=== PATIENT | female | born 1990 | race Caucasian/White ===

== ENCOUNTER 2020-06-01 11:18 | Emergency (ER) | payer MEDICAID, SELFPAY ==
[2020-06-01 11:31] VITALS: BP 124/77; PULSE 104; RESP 20; TEMP 37.1; O2SAT 100
--- NOTE | 2020-06-01 11:35 | ED.GENADULT ---
HPI - General Adult General Chief complaint: Ear Stated complaint: hardened wax in right ear Time Seen by Provider: 06/01/20 11:23 Mode of arrival: ambulatory Limitations: no limitations History of Present Illness HPI narrative: Patient presents for evaluation of right-sided ear discomfort for the last 2 days. She thought that her symptoms were related to a cerumen impaction. She has been using Debrox and hydrogen peroxide. She also tried to extract wax from both ears using a Mark pin. She has no difficulty hearing and also denies tinnitus. No fever, chills, cough or shortness of breath. She does have some mild nasal congestion and clear drainage. She reports a history of asthma. She has been using cetirizine, Singulair, Sudafed with minimal improvement in her symptoms thereafter. Related Data Home Medications Medication Instructions Recorded Confirmed albuterol sulfate 1 inh INHALATION Q6-8H 06/01/20 06/01/20 montelukast 10 mg DAILY 06/01/20 06/01/20 Allergies Allergy/AdvReac Type Severity Reaction Status Date / Time No Known Allergies Allergy Verified 06/01/20 11:22 Review of Systems Review of Systems: Narrative: CONSTITUTIONAL: Denies fever, chills, or sweats. EYES: Denies visual changes, redness, or discharge. ENT: Reports rhinorrhea and congestion. Reports sore throat yesterday, now resolved. Reports right sided otalgia. CARDIOVASCULAR: Denies chest pain, palpitations, or edema. RESPIRATORY: Denies cough or dyspnea. GASTROINTESTINAL: Denies abdominal pain, nausea, vomiting, or diarrhea. GENITOURINARY: Denies dysuria or hematuria. SKIN: Denies rash or itching. MUSCULOSKELETAL: Denies back pain, joint pain, or myalgia. NEUROLOGIC: Denies headache, numbness, dizziness, or weakness. PSYCHIATRIC: Denies anxiety or depression. [facility] Past Medical History Medical History (Updated 06/01/20 @ 11:41 by JESSICA Tomas, ) Asthma Surgical History Surgical History (Updated 06/01/20 @ 11:38 by JESSICA Tomas, MICKI) H/O right knee surgery Family History Family History Father Family history of lung cancer Hypertension Mother Hypertension Social History Social History (Reviewed 06/01/20 @ 11:38 by Terrance Lu, [facility], ) Smoking status: Never smoker Alcohol intake: current Substance use: never Gender identity (if verbalized by the patient): Female Exam Narrative: Exam Narrative: GENERAL: Well-appearing, well-nourished, and in no acute distress. HEAD: Normocephalic, atraumatic. EYES: PERRLA and EOMI. ENT: Nares clear, no rhinorrhea or epistaxis. Mucous membranes moist. Oropharynx without tonsillar hypertrophy exudate or other lesions. Left tympanic membrane with mild erythema but no middle ear fluid. No cerumen present in either ear. Right tympanic membrane is retracted with middle ear fluid present and erythema. NECK: Supple. No adenopathy or masses. No carotid bruits or JVD CHEST: Clear to auscultation. No respiratory distress. No wheezes rales or rhonchi HEART: Regular rate and rhythm. No murmur heard. Normal peripheral pulses. ABDOMEN: Soft, nontender, nondistended, normal active bowel sounds. EXTREMITIES: Normal range of motion. No edema. SKIN: Warm, dry, no rash. NEURO: No focal deficits. Alert and oriented x3. PSYCH: Normal mood and affect. Course Vital Signs Vital signs: Vital Signs Temperature 37.1 C 06/01/20 11:31 Pulse Rate 104 H 06/01/20 11:31 Respiratory Rate 06/01/20 11:31 Blood Pressure 124/77 06/01/20 11:31 Pulse Oximetry 100 06/01/20 11:31 Temperature 37.1 C 06/01/20 11:31 Pulse Rate 104 H 06/01/20 11:31 Respiratory Rate 06/01/20 11:31 Blood Pressure 124/77 06/01/20 11:31 Pulse Oximetry 100 06/01/20 11:31 Medical Decision Making MDM Narrative Medical decision making narrative: Patient presents with 2-day history of right-sided otalgia
== END 2020-06-01 11:47 | disposition home or self-care (01) ==
PROVIDERS: Emergency Provider Nurse Practitioner; PCP Registered Nurse
DX: H66.90 Otitis media, unspecified, unspecified ear (principal); J45.909 Unspecified asthma, uncomplicated
CPT/HCPCS: 99213; A9270; G0463

== ENCOUNTER 2020-07-16 15:17 | Emergency (ER) | payer OTHER, SELFPAY ==
[2020-07-16 15:28] VITALS: BP 120/84; PULSE 92; RESP 20; TEMP 37.1; O2SAT 99
--- NOTE | 2020-07-16 15:30 | ED.GENADULT ---
HPI - General Adult General Chief complaint: Ear Stated complaint: ear pain Time Seen by Provider: 07/16/20 15:30 Source: patient and RN notes reviewed Mode of arrival: ambulatory Limitations: no limitations History of Present Illness HPI narrative: 30-year-old female complains of RT otalgia, pressure, and clogged feeling for the past 3 days. Zyrtec, Singulair, and Sudafed without relief. Was treated for otitis media in May 2020 with Augmentin patient says she completed treatment. Denies itching or drainage. Recently had URI symptoms. No facial swelling. No rhinorrhea and nasal congestion. No high fevers, sore throat, drooling, neck or throat swelling. No chest pain or shortness of breath. Remains active. Denies being , LMP 06/21/20. The patient reports she have not been diagnosed with COVID-19. The patient reports she is not waiting for the results of a COVID-19 lab test. The patient reports she do not have fever, chills, weakness, or fatigue. The patient reports she do not have a new or worsening cough or shortness of breath. Denies chest pain. The patient reports she do not have any loss of taste, nausea, vomiting, abdominal pain, and diarrhea. Tolerating po intake well. Denies recent traveling. Denies concerns for COVID-19 or exposures been home with limited outdoor exposure except for essential household needs, work, and return home. At this time, patient is not suspected of having COVID-19. Some parts of this dictation were generated by voice recognition software and may contain typographical and/or grammatical inaccuracies. Related Data Home Medications Medication Instructions Recorded Confirmed montelukast 10 mg DAILY 06/01/20 07/16/20 Allergies Allergy/AdvReac Type Severity Reaction Status Date / Time No Known Allergies Allergy Verified 06/01/20 11:22 Review of Systems Review of Systems: Narrative: CONSTITUTIONAL: Denies fever, chills, sweats. EYES: Denies visual changes, redness, discharge. ENT: Complains of RT otalgia, pressure, clogged. Denies sore throat, rhinorrhea, nasal congestion. CARDIOVASCULAR: Denies chest pain, palpitations, edema. RESPIRATORY: Denies dyspnea, wheezing, cough. GASTROINTESTINAL: Denies abdominal pain, nausea, vomiting, diarrhea. GENITOURINARY: Denies dysuria, hematuria, abnormal discharge. SKIN: Denies rash or itching. MUSCULOSKELETAL: Denies acute back pain, joint pain, or myalgia. NEUROLOGIC: Denies numbness or focal weakness. PSYCHIATRIC: Denies anxiety or depression. All systems reviewed & are unremarkable except as noted in HPI and below. 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 There is relevant patient's past medical history pertinent to the presenting complaint, no relevant family history pertinent to the presenting complaint. Exam Narrative: Exam Narrative: GENERAL: This is a well-nourished, well-developed patient, in no apparent distress. Talks in full sentences and ambulates with steady gait without dyspnea. HEAD: normocephalic, atraumatic. EYES: PERRL. Sclera c
== END 2020-07-16 15:50 | disposition home or self-care (01) ==
PROVIDERS: Emergency Provider Nurse Practitioner Family
DX: H65.191 Other acute nonsuppurative otitis media, right ear (principal); J45.909 Unspecified asthma, uncomplicated
CPT/HCPCS: 99213; G0463

== ENCOUNTER 2020-12-28 11:01 | Emergency (ER) | payer OTHER, SELFPAY ==
[2020-12-28 11:15] VITALS: BP 123/88; PULSE 88; RESP 16; TEMP 36.7; O2SAT 98
--- NOTE | 2020-12-28 11:29 | ED.EAR ---
HPI - Ear Problem General Chief complaint: Ear Stated complaint: Dizzy,Ear and Neck Pain,Cannot focus Time Seen by Provider: 12/28/20 11:30 Source: patient and RN notes reviewed Mode of arrival: ambulatory Limitations: no limitations History of Present Illness HPI Narrative: 30-year-old female presents with concern for 4-day history of right ear pain that radiates down the right neck. Reports general malaise, fatigue, occasional dizziness. Reports she has been taking Sudafed, Nasacort since yesterday with no relief. Reports when she feels dizzy she takes meclizine with no relief. She denies decreased hearing, drainage from the ear. Reports she saw her ENT on and was told her ears looked normal. MD Complaint: ear pain Related Data Home Medications Medication Instructions Recorded Confirmed montelukast 10 mg DAILY 06/01/20 12/28/20 cetirizine [Zyrtec] 10 mg PO DAILY 12/28/20 12/28/20 Allergies Allergy/AdvReac Type Severity Reaction Status Date / Time No Known Allergies Allergy Verified 06/01/20 11:22 Review of Systems Review of Systems: Narrative: CONSTITUTIONAL: Reports fatigue and malaise. Denies chills, sweats, or fever. EYES: Denies visual changes, redness, or discharge. ENT: Denies rhinorrhea, congestion, sinus pain, and sore throat. Reports right ear pain CARDIOVASCULAR: Denies chest pain, palpitations, or edema. RESPIRATORY: Denies cough or dyspnea. GASTROINTESTINAL: Denies abdominal pain, nausea, vomiting, diarrhea SKIN: Denies rash or itching. MUSCULOSKELETAL: Denies myalgia. NEUROLOGIC: Denies headache. 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 There is no relevant family history pertinent to the presenting complaint Exam Narrative: Exam Narrative: GENERAL: Well-appearing, well-nourished, and in no acute distress. HEAD: Normocephalic EYES: PERRLA, conjunctivae clear ENT: Nares clear, turbinates erythematous, clear discharge. Mucous membranes moist. TM pearly limon with dull light reflex bilaterally; no tragal tenderness, no drainage, external auditory canal unremarkable. Oropharynx mildly erythematous without lesions. Tonsils not enlarged and without exudate, no drooling, no hoarseness, no trismus, uvula midline. NECK: Supple. No lymphadenopathy CHEST: Clear to auscultation, breath sounds equal. No wheezing, rhonchi, rales, or stridor. No respiratory distress, speaks in full sentences. HEART: Regular rate and rhythm. No murmur heard. SKIN: Warm, dry, no rash. NEURO: Alert and oriented x3. PSYCH: Normal mood and affect Course Course Emergency Course: Patient is aware of diagnosis, understands and agrees to treatment plan. Anticipatory guidance given. Patient agrees to follow-up as directed and is aware of reasons to seek care at the emergency department. Portions of this record may have been created with voice recognition software Vital Signs Vital signs: Vital Signs Temperature 98.1 F 12/28/20 11:15 Pulse Rate 88 12/28/20 11:15 Respiratory Rate 16 12/28/20 11:15 Blood Pressure
[2020-12-28 11:59] VITALS: BP 110/66; PULSE 88; RESP 20; O2SAT 100
== END 2020-12-28 12:01 | disposition home or self-care (01) ==
PROVIDERS: Emergency Provider Nurse Practitioner
DX: J02.0 Streptococcal pharyngitis (principal); J45.909 Unspecified asthma, uncomplicated
CPT/HCPCS: 87880; 99213; G0463

== ENCOUNTER 2021-05-16 10:02 | Emergency (ER) | payer OTHER, SELFPAY ==
[2021-05-16 10:16] VITALS: BP 122/78; PULSE 90; RESP 18; TEMP 36.4; O2SAT 99
--- NOTE | 2021-05-16 10:21 | ED.URI ---
HPI - URI/Sore Throat General Chief Complaint: Upper Respiratory Infection Stated Complaint: Sore Throat,Sinus Time Seen by Provider: 05/16/21 10:21 Source: patient Mode of arrival: ambulatory Limitations: no limitations History of Present Illness HPI Narrative: Lou Jaime is a 31 yo female with a PMH of seasonal allergies who comes to [facility] with a severe sore throat that started yesterday. She has a history of having strep having had back in December she completed all antibiotics and was concerned that had returned. She has had no fever but she is complaining of severe swallowing problems and the sore throat woke her up during the night Related Data Home Medications Medication Instructions Recorded Confirmed montelukast 10 mg PO DAILY 06/01/20 05/16/21 cetirizine [Zyrtec] 10 mg PO DAILY 05/16/21 05/16/21 melatonin 5 mg PO HS 05/16/21 05/16/21 norgestimate-ethinyl estradiol 1 tablet PO DAILY 05/16/21 05/16/21 [Tri-Sprintec (28)] Allergies Allergy/AdvReac Type Severity Reaction Status Date / Time No Known Allergies Allergy Verified 05/16/21 10:07 Review of Systems Review of Systems: CONSTITUTIONAL: Denies fever, chills, sweats. EYES: Denies visual changes, redness, discharge. ENT: Denies rhinorrhea, congestion, has sore throat, otalgia. CARDIOVASCULAR: Denies chest pain, palpitations, edema. RESPIRATORY: Denies dyspnea, wheezing, cough GASTROINTESTINAL: Denies abdominal pain, nausea, vomiting, diarrhea. GENITOURINARY: Denies dysuria, hematuria, abnormal discharge SKIN: Denies rash or itching. NEUROLOGIC: Denies numbness, or focal weakness. PSYCHIATRIC: Denies anxiety or depression. 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 Gender identity (if verbalized by the patient): Female Comments At time of signature, I agree with nursing past medical, surgical, social and family history. There is no relevant family history pertinent to the presenting complaint. Exam Narrative: GENERAL: This is a well-nourished, well-developed patient, in mild distress. HEAD: normocephalic, atraumatic. EYES: Sclera clear/white. Vision is grossly intact. EARS: External ears normal, auditory canals clear and without drainage, TMs normal without perforation. Hearing grossly intact. NOSE: External nose normal without nasal discharge, nares without redness, no rhinorrhea. THROAT: Mucous membranes moist, posterior pharynx with erythema and tonsillar edema with white patches posterior pharynx NECK: Neck supple, non-tender CARDIOVASCULAR: Regular rate and rhythm without murmurs, gallops, or rubs. RESPIRATORY: Clear to auscultation. Breath sounds equal bilaterally. No wheezes, rales, or rhonchi. GASTROINTESTINAL: Abdomen soft, non-tender, SKIN: warm, intact with no suspicious lesions or rash, good texture and turgor. NEURO: awake, alert, and oriented to person, place and time. There were no obvious focal neurologic abnormalities. Steady gait EXTREMITIES: Normal range of motion. BACK: Nontender without deformity Course Course Emergency Course: Patient comes a severe sore throat to [facility] Strep Test positive Started on amoxicillin 875 twice daily and ibuprofen 800 mg every 6 hours as needed as needed- follow up with primary Vital Signs Vital signs: Vital Signs [place]
== END 2021-05-16 10:46 | disposition home or self-care (01) ==
PROVIDERS: Emergency Provider Nurse Practitioner; PCP Registered Nurse
DX: J02.0 Streptococcal pharyngitis (principal); J45.909 Unspecified asthma, uncomplicated
CPT/HCPCS: 87880; 99213; G0463

== ENCOUNTER 2021-11-30 11:25 | Emergency (ER) | payer OTHER, SELFPAY ==
[2021-11-30 12:12] VITALS: BP 107/73; PULSE 92; RESP 18; TEMP 36.6; O2SAT 100
--- NOTE | 2021-11-30 13:02 | ED.URI ---
HPI - URI/Sore Throat General Chief Complaint: Upper Respiratory Infection Stated Complaint: Sinus,Congestion,Sore Throat,Runny Nose Time Seen by Provider: 11/30/21 13:02 Source: patient, RN notes reviewed and old records reviewed Mode of arrival: ambulatory Limitations: no limitations History of Present Illness HPI Narrative: 31-year-old female who presents to [facility] with complaints of sore throat some sinus pressure and sinus drainage since yesterday morning. Patient states she has not had any fevers that she knows of but has had some episodes of feeling hot and cold. Patient's been taking Tylenol and ibuprofen for her discomfort and takes daily Zyrtec for seasonal allergies.Patient denies nay nausea or vomiting or diarrhea MD elicited complaint: sore throat, rhinorrhea and nasal congestion Related Data Home Medications Medication Instructions Recorded Confirmed montelukast 10 mg PO DAILY 06/01/20 11/30/21 cetirizine [Zyrtec] 10 mg PO DAILY 05/16/21 11/30/21 melatonin 5 mg PO HS 05/16/21 11/30/21 norgestimate-ethinyl estradiol 1 tablet PO DAILY 05/16/21 11/30/21 [Tri-Sprintec (28)] Allergies Allergy/AdvReac Type Severity Reaction Status Date / Time No Known Allergies Allergy Verified 11/30/21 12:46 Review of Systems Review of Systems: CONSTITUTIONAL:No known fever, positive for chills, or sweats. EYES: Denies visual changes, redness, or discharge. ENT: Positive for rhinorrhea, congestion, sore throat, no otalgia. CARDIOVASCULAR: Denies chest pain, palpitations, or edema. RESPIRATORY: Denies cough or dyspnea. GASTROINTESTINAL: Denies abdominal pain, nausea, vomiting, or diarrhea. GENITOURINARY: Denies dysuria or hematuria. SKIN: Denies rash or itching. MUSCULOSKELETAL: Denies back pain, joint pain, or myalgia. NEUROLOGIC: Denies headache, numbness, or weakness. PSYCHIATRIC: Denies anxiety or depression. 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 There is no relevant family history pertinent to the presenting complaint Exam Narrative: GENERAL: Well-appearing, well-nourished, and in no acute distress. HEAD: Normocephalic, atraumatic. EYES: PERRLA and EOMI. ENT: Nares red with clear rhinorrhea no epistaxis. Mucous membranes moist.TM's normal with good light reflex, throat red with no lesions or exudates noted, tonsils red swollen NECK: Supple.lymphadenopathy CHEST: Clear to auscultation. No respiratory distress.SAO2 100% on room air HEART: Regular rate and rhythm. No murmur heard. Normal peripheral pulses. ABDOMEN: Soft, nontender, nondistended, normal active bowel sounds. EXTREMITIES: Normal range of motion. No edema. SKIN: Warm, dry, no rash. NEURO: No focal deficits. Alert and oriented x3. Course Course Level of Care: Express Care Visit Vital Signs Vital signs: Vital Signs Temperature 36.6 C 11/30/21 12:12 Pulse Rate 92 11/30/21 12:12 Respiratory Rate 18 11/30/21 12:12 Blood Pressure 107/73 11/30/21 12:12 Pulse Oximetry 100 11/30/21 12:12 Temperature 36.6 C 11/30/21 12:12 Pulse Rate 92 0
--- NOTE | 2021-11-30 13:22 | ED.URI ---
HPI - URI/Sore Throat General Chief Complaint: Upper Respiratory Infection Stated Complaint: Sinus,Congestion,Sore Throat,Runny Nose Time Seen by Provider: 11/30/21 13:02 Source: patient, RN notes reviewed and old records reviewed Mode of arrival: ambulatory Limitations: no limitations History of Present Illness MD elicited complaint: cough, sore throat, rhinorrhea and nasal congestion Pertinent past history: asthma and seasonal allergies Onset (ago): day(s) (2) Consistency: constant Severity: moderate Description of mucous: clear Able to tolerate fluids by mouth: Yes Exacerbating factors: swallowing Associated symptoms: rhinorrhea, nasal congestion and sore throat Treatments prior to arrival: acetaminophen Related Data Home Medications Medication Instructions Recorded Confirmed montelukast 10 mg PO DAILY 06/01/20 11/30/21 cetirizine [Zyrtec] 10 mg PO DAILY 05/16/21 11/30/21 melatonin 5 mg PO HS 05/16/21 11/30/21 norgestimate-ethinyl estradiol 1 tablet PO DAILY 05/16/21 11/30/21 [Tri-Sprintec (28)] Allergies Allergy/AdvReac Type Severity Reaction Status Date / Time No Known Allergies Allergy Verified 11/30/21 12:46 Review of Systems Review of Systems: CONSTITUTIONAL: Denies known fever, positive for some chills, or sweats. EYES: Denies visual changes, redness, or discharge. ENT: positive for rhinorrhea, congestion, sore throat, no otalgia. CARDIOVASCULAR: Denies chest pain, palpitations, or edema. RESPIRATORY: Denies cough or dyspnea. GASTROINTESTINAL: Denies abdominal pain, nausea, vomiting, or diarrhea. GENITOURINARY: Denies dysuria or hematuria. SKIN: Denies rash or itching. MUSCULOSKELETAL: Denies back pain, joint pain, or myalgia. NEUROLOGIC: Denies headache, numbness, or weakness. PSYCHIATRIC: Denies anxiety or depression. 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 There is no relevant family history pertinent to the presenting complaint Exam Narrative: GENERAL: Well-appearing, well-nourished, and in no acute distress. HEAD: Normocephalic, atraumatic. EYES: PERRLA and EOMI. ENT: Nares patent red rhinorrhea no epistaxis. Mucous membranes moist.TM's normal; with good light reflex NECK: Supple. CHEST: Clear to auscultation. No respiratory distress. HEART: Regular rate and rhythm. No murmur heard. Normal peripheral pulses. ABDOMEN: Soft, nontender, nondistended, normal active bowel sounds. EXTREMITIES: Normal range of motion. No edema. SKIN: Warm, dry, no rash. NEURO: No focal deficits. Alert and oriented x3. Course Course Level of Care: Express Care Visit Vital Signs Vital signs: Vital Signs Temperature 36.6 C 11/30/21 12:12 Pulse Rate 92 11/30/21 12:12 Respiratory Rate 18 11/30/21 12:12 Blood Pressure 107/73 11/30/21 12:12 Pulse Oximetry 100 11/30/21 12:12 Temperature 36.6 C 11/30/21 12:12 Pulse Rate 92 11/30/21 12:12 Respiratory Rate 18 11/30/21 12:12 Blood Pressure 107/73 11/30/21 12:12 Pulse Oximetry 100 11/30/21 12:12 MDM - URI/Sore Throat Differential Diagnosi
== END 2021-11-30 13:36 | disposition home or self-care (01) ==
PROVIDERS: Emergency Provider Registered Nurse; PCP Registered Nurse
DX: J02.0 Streptococcal pharyngitis (principal); J45.909 Unspecified asthma, uncomplicated
CPT/HCPCS: 87880; 99213; G0463

== ENCOUNTER 2022-02-21 12:40 | Emergency (ER) | payer OTHER, SELFPAY ==
[2022-02-21 12:51] VITALS: BP 114/74; PULSE 76; RESP 18; TEMP 36.9; O2SAT 100
--- NOTE | 2022-02-21 13:10 | ED.GENADULT ---
HPI - General Adult General Stated complaint: abdominal pain,no appetite Source: patient Mode of arrival: ambulatory Limitations: no limitations History of Present Illness HPI narrative: Pt presents for evaluation of sick symptoms started this morning. She woke from sleep around 0200 and took a dose of pepcid and went back to sleep. Upon waking for the day she noted sore throat, occasional nonproductive cough, some green rhinorrhea, a metallic/acid taste in her mouth, decreased appetite and fatigue. No fever, chills, nausea, vomiting, chest pain or SOB. She took a home COVID test which was negative. She has received COVID vaccine x 2 and both boosters. She is wondering if she has strep. She states she tested positive for strep a little over a year ago. At that time her primary symptom was dizziness. She does not smoke. No recent sick contacts. No additional complaints or concerns. LMP 02/14/22. She is not sexually active. Related Data Home Medications Medication Instructions Recorded Confirmed montelukast 10 mg tablet 10 mg PO DAILY 06/01/20 11/30/21 norgestimate-ethinyl estradiol 1 tablet DAILY 02/21/22 02/21/22 0.18 mg/0.215mg/0.25mg-35 mcg(28)tablet (Tri-Sprintec (28)) Allergies Allergy/AdvReac Type Severity Reaction Status Date / Time No Known Allergies Allergy Verified 02/21/22 13:18 Review of Systems Review of Systems: CONSTITUTIONAL: Reports decreased appetite and fatigue. Denies fever, chills, or sweats. EYES: Denies visual changes, redness, or discharge. ENT: Reports green rhinorrhea, sore throat, metallic/acidic taste in her mouth. Denies rhinorrhea or otalgia. CARDIOVASCULAR: Denies chest pain, palpitations, or edema. RESPIRATORY: Reports occasional nonproductive cough. Denies dyspnea. GASTROINTESTINAL: Denies abdominal pain, nausea, vomiting, or diarrhea. GENITOURINARY: Denies dysuria or hematuria. SKIN: Denies rash or itching. MUSCULOSKELETAL: Denies back pain, joint pain, or myalgia. NEUROLOGIC: Denies headache, numbness, dizziness, or weakness. PSYCHIATRIC: Denies anxiety or depression. 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 HEAD: Normocephalic, atraumatic. EYES: PERRLA and EOMI. ENT: Nares clear, no rhinorrhea or epistaxis. Mucous membranes moist. Mild bilateral tonsillar swelling without erythema or exudate. Bilateral TMs pearly limon nonbulging NECK: Supple. No adenopathy or masses. No carotid bruits or JVD CHEST: Clear to auscultation. No respiratory distress. No wheezes rales or rhonchi HEART: Regular rate and rhythm. No murmur heard. Normal peripheral pulses. ABDOMEN: Soft, nontender, nondistended, normal active bowel sounds. EXTREMITIES: Normal range of motion. No edema. SKIN: Warm, dry, no rash. NEURO: No focal deficits. Alert and oriented x3. PSYCH: Normal mood and affect. Course Course Emergency Course: This is a 32-year-old female that presented with complaints of sick symptoms. Strep was positive. Urinalysis had leukocytes. Will treat both with amoxicillin. She should increase hydration. She is non-toxic appearing. She should follow up outpatient f
[2022-02-21] MEDS: FAMOTIDINE 20 MG TABLET PO (13:19)
== END 2022-02-21 13:50 | disposition home or self-care (01) ==
PROVIDERS: Emergency Provider Nurse Practitioner; PCP Registered Nurse
DX: J02.0 Streptococcal pharyngitis (principal); N39.0 Urinary tract infection, site not specified; J45.909 Unspecified asthma, uncomplicated
CPT/HCPCS: 36416; 81003; 81025; 86308; 87086; 87880; 99213; A9270; G0463

== ENCOUNTER 2022-08-09 10:14 | Emergency (ER) | payer OTHER, SELFPAY ==
[2022-08-09 11:18] VITALS: BP 106/71; PULSE 85; RESP 18; TEMP 36.4; O2SAT 100
--- NOTE | 2022-08-09 11:40 | ED.URI ---
HPI - URI/Sore Throat General Chief Complaint: Upper Respiratory Infection Stated Complaint: sorethroat Time Seen by Provider: 08/09/22 11:30 Source: patient Mode of arrival: ambulatory Limitations: no limitations History of Present Illness HPI Narrative: Lou is a 32-year-old female patient presenting to the clinic today with complaints of sore throat that just began yesterday. She states that she has had some drainage going down the back of her throat. She denies any fever chills MD elicited complaint: sore throat and nasal congestion Related Data Home Medications Medication Instructions Recorded Confirmed norgestimate-ethinyl estradiol 1 tablet DAILY 02/21/22 08/09/22 0.18 mg/0.215mg/0.25mg-35 mcg(28)tablet (Tri-Sprintec (28)) Allergies Allergy/AdvReac Type Severity Reaction Status Date / Time No Known Allergies Allergy Verified 08/09/22 11:20 Review of Systems Review of Systems: Pertinent positives per HPI. Patient denies any fever, chills, rash, headache, visual changes, dizziness, cough, shortness of breath, chest pain, palpitations, nausea, vomiting, diarrhea, constipation, abdominal pain, or any urinary issues. 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 There is no relevant family history pertinent to the patient complaint. Exam Narrative: General: Well-developed, well nourished, in no apparent distress Head: Normocephalic, atraumatic Eyes: Pupils equally round and reactive to light bilaterally, EOM intact, sclera and conjunctive clear, no discharge, lids normal Ears: TMs intact and clear, ear canals clear, no drainage, grossly hearing normal. Nose: Nares patent, clear discharge, no inflammation, no sinus tenderness. Mouth: Oral pharynx without lesions or masses, good dentition, MMM. oropharynx red, postnasal drip Neck: Supple, trachea midline, no enlargement of anterior or posterior cervical nodes, no thyroid masses or goiter palpable. Cardio: Regular rate and rhythm, s1 and s2 normal, no murmur appreciated. Resp: Clear to auscultation bilaterally, no rhonchi, rales, wheezing or rubs Course Course Emergency Course: Portions of this record may have been created with voice recognition software. Level of Care: Express Care Visit Vital Signs Vital signs: Vital Signs Temperature 36.4 C 08/09/22 11:18 Pulse Rate 85 08/09/22 11:18 Respiratory Rate 18 08/09/22 11:18 Blood Pressure 106/71 08/09/22 11:18 Pulse Oximetry 100 08/09/22 11:18 Oxygen Delivery Room Air 08/09/22 11:18 Temperature 36.4 C 08/09/22 11:18 Pulse Rate 85 08/09/22 11:18 Respiratory Rate 18 08/09/22 11:18 Blood Pressure 106/71 08/09/22 11:18 Pulse Oximetry 100 08/09/22 11:18 Oxygen Delivery Room Air 08/09/22 11:18 Vital signs reviewed MDM - URI/Sore Throat MDM Narrative Medical decision making narrative: at the time of visit patient is resting comfortably on the exam table. Strep screen was obtained was negative in the clinic today. I suspect patient has postnasal drip pharyngitis. Supportive measures were
== END 2022-08-09 11:45 | disposition home or self-care (01) ==
PROVIDERS: Emergency Provider Nurse Practitioner Family; PCP Registered Nurse
DX: J02.9 Acute pharyngitis, unspecified (principal); R09.82 Postnasal drip; J45.909 Unspecified asthma, uncomplicated
CPT/HCPCS: 87081; 87880; 99213; G0463

== ENCOUNTER 2023-02-19 11:39 | Emergency (ER) | payer OTHER, SELFPAY ==
--- NOTE | 2023-02-19 11:43 | ED.FEMALEGU ---
HPI - Female Genitourinary General Chief complaint: Urogenital-Female Stated complaint: UTI Time Seen by Provider: 02/19/23 11:56 Source: patient Mode of arrival: ambulatory Limitations: no limitations History of Present Illness HPI Narrative: Lou is a 33-year-old female patient presenting to clinic today with complaints of a possible urinary tract infection. She reports she is having urinary frequency and urgency as well as some low back pain and lower abdominal discomfort. She reports symptoms began last night. Denies any known fever or chills. Last bowel movement was 2 days ago. Does have history of constipation. Related Data Home Medications Medication Instructions Recorded Confirmed norgestimate-ethinyl estradiol 1 tablet DAILY 02/21/22 08/09/22 0.18 mg/0.215mg/0.25mg-35 mcg(28)tablet (Tri-Sprintec (28)) montelukast 10 mg tablet mg 02/19/23 Allergies Allergy/AdvReac Type Severity Reaction Status Date / Time No Known Allergies Allergy Verified 02/19/23 12:02 Review of Systems Review of Systems: Pertinent positives per HPI. Patient denies any fever, chills, rash, headache, visual changes, dizziness, cough, runny nose, sore throat, shortness of breath, chest pain, palpitations, nausea, vomiting, diarrhea PMFSH Past Medical History Medical History Asthma Seasonal allergies Surgical History Surgical History H/O right knee surgery Family History Family History Father Family history of lung cancer Hypertension Mother Hypertension Social History Social History Smoking status: Never smoker Tobacco type: cigarettes Second hand tobacco smoke exposure: No Alcohol intake: current Substance use: never Living arrangements: with family Occupation/Education: occupation 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 There is no relevant family history pertinent to the patient complaint. Exam Narrative: General: Well-developed, well nourished, in no apparent distress. Head: Normocephalic, atraumatic. Cardio: Regular rate and rhythm, s1 and s2 normal, no murmur appreciated. Resp: Clear to auscultation bilaterally, no rhonchi, rales, wheezing or rubs. Abdomen: Soft, pliable, bowel sounds present in all quadrants, mild tender to palpation over the lower abdomen, no organomegly, mild CVAT tenderness to left Course Course Emergency Course: Portions of this record may have been created with voice recognition software. Level of Care: Express Care Visit Vital Signs Vital signs: Vital Signs Temperature 36.7 C 02/19/23 11:56 Pulse Rate 68 02/19/23 11:56 Respiratory Rate 16 02/19/23 11:56 Blood Pressure 133/84 02/19/23 11:56 Pulse Oximetry 100 02/19/23 11:56 Oxygen Delivery Room Air 02/19/23 11:56 Temperature 36.7 C 02/19/23 11:56 Pulse Rate 68 02/19/23 11:56 Respiratory Rate 16 02/19/23 11:56 Blood Pressure 133/84 02/19/23 11:56 Pulse Oximetry 100 02/19/23 11:56 Oxygen Delivery Room Air 02/19/23 11:56 Vital signs reviewed MDM - Female Genitourinary MDM Narrative Medical decision making narrative: At the time of visit patient is resting comfortably on the exam table. Urinalysis was performed and was negative in the clinic today. Patient has not had a bowel movement in 2 days and has history of constipation. I suspect patient may have constipation causing her discomfort today. Offered to do a x-ray to confirm diagnosis however patient declined. Supportive measures were discusse
[2023-02-19 11:56] VITALS: BP 133/84; PULSE 68; RESP 16; TEMP 36.7; O2SAT 100
== END 2023-02-19 12:25 | disposition home or self-care (01) ==
PROVIDERS: Emergency Provider Nurse Practitioner Family; PCP Registered Nurse
DX: M54.50 Low back pain, unspecified (principal); R10.84 Generalized abdominal pain; Z87.19 Personal history of other diseases of the digestive system; J45.909 Unspecified asthma, uncomplicated
CPT/HCPCS: 81003; 99212; G0463

== ENCOUNTER 2023-10-31 18:06 | Emergency (ER) | payer BC, SELFPAY ==
[2023-10-31 18:16] VITALS: BP 127/87; PULSE 71; RESP 18; TEMP 36.4; O2SAT 100
--- NOTE | 2023-10-31 18:16 | ED.FEMALEGU ---
HPI - Female Genitourinary General Chief complaint: Urogenital-Female Stated complaint: Urinary Problems Time Seen by Provider: 10/31/23 18:16 Source: patient Mode of arrival: ambulatory Limitations: no limitations History of Present Illness HPI Narrative: Lou is a 33-year-old female patient presenting to the clinic today with complaints of vaginal bleeding and discomfort in the lower abdomen and back. She denies any urinary symptoms. Last bowel movement was today. Last sexual intercourse was over the weekend. Denies any pain with intercourse or any trauma. Last menstrual period was October 19. Related Data Home Medications Medication Instructions Recorded Confirmed norgestimate-ethinyl estradiol 1 tablet DAILY 02/21/22 10/31/23 0.18 mg/0.215mg/0.25mg-35 mcg(28)tablet (Tri-Sprintec (28)) Allergies Allergy/AdvReac Type Severity Reaction Status Date / Time No Known Allergies Allergy Verified 10/31/23 18:13 Review of Systems Review of Systems: Pertinent positives per HPI. Patient denies any fever, chills, rash, headache, visual changes, dizziness, cough, runny nose, sore throat, shortness of breath, chest pain, palpitations, nausea, vomiting, diarrhea, constipation. 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 There is no relevant family history pertinent to the patient complaint. Exam Narrative: General: Well-developed, well nourished, in no apparent distress. Head: Normocephalic, atraumatic. Cardio: Regular rate and rhythm, s1 and s2 normal, no murmur appreciated. Resp: Clear to auscultation bilaterally, no rhonchi, rales, wheezing or rubs. Abdomen: Soft, pliable, bowel sounds present in all quadrants, tender to palpation over the pelvis, no organomegly, no CVAT tenderness. : Pelvic exam performed by (Amanda LOPEZ-student) with [employer] PRACTITIONER at bedside. Verbal consent obtained from patient. Normal external female genitalia without lesions or masses, Urinary meatus: patent without discharge, Vagina: No lesions, masses, or discharge, Cervix: pink without mass or lesions, bleeding coming from cervix, CMT. Adnexa: without palpable mass or tenderness. Course Course Emergency Course: Portions of this record may have been created with voice recognition software. Level of Care: Express Care Visit Vital Signs Vital signs: Vital signs reviewed MDM - Female Genitourinary MDM Narrative Medical decision making narrative: At the time of visit patient is resting comfortably on the exam table. Patient appears to be nontoxic. Labs: UA is negative for any sign of infection, blood, or protein in the urine. Urine test was negative. Bacterial vaginosis swab was obtained. Patient declined chlamydia, gonorrhea, and Trichomonas testing Plan: I suspect patient has dysmenorrhea/abnormal uterine bleeding, rule out bacterial vaginosis. No obvious cervical/uterine infection. Supportive measures were discussed with the patient and they voiced understanding discharge instruc
[2023-11-05 23:31] LABS: Bacterial Vaginosis Positive (Negative)
== END 2023-10-31 18:45 | disposition home or self-care (01) ==
PROVIDERS: Emergency Provider Nurse Practitioner Family; PCP Registered Nurse
DX: N93.9 Abnormal uterine and vaginal bleeding, unspecified (principal); J45.909 Unspecified asthma, uncomplicated
CPT/HCPCS: 81003; 81025; 81513; 99214; G0463